=== PATIENT | female | born 1995 | race Caucasian/White ===

== ENCOUNTER 2018-12-30 10:32 | Emergency (ER) | payer MEDICAID ==
[~2018-12-30] VITALS: Ht 177.8 cm; Wt 86.4 kg
[2018-12-30 10:43] VITALS: BP 116/74
[2018-12-30] MEDS ORDERED: PENI500T2 PO (12:09)
[2018-12-30] MEDS ORDERED: penicillin V potassium 500mg tablet PO ONE (12:15)
== END 2018-12-30 12:24 | disposition home or self-care (01) ==
LOC: ER 10:34
DX: J02.0 Streptococcal pharyngitis (principal); Z79.899 Other long term (current) drug therapy; Z90.49 Acquired absence of other specified parts of digestive tract
CPT/HCPCS: 87880; 99283